=== PATIENT | female | born 1980 ===

== ENCOUNTER 2022-06-28 11:15 | Outpatient (CLI) | payer OTHER | END 2022-06-28 13:15 | disposition home or self-care (01) | LOC: PRENATAL 11:15 | PROVIDERS: ATTEND Obstetrics & Gynecology Maternal & Fetal Medicine | DX: Z96.1 Presence of intraocular lens (principal) ==

== ENCOUNTER 2022-07-20 09:18 | Outpatient (CLI) | payer OTHER | END 2022-07-20 10:30 | disposition home or self-care (01) | LOC: PRENATAL 09:18 | PROVIDERS: ATTEND Obstetrics & Gynecology Maternal & Fetal Medicine | DX: O35.0XX0 Maternal care for (suspected) central nervous system malformation in fetus, not applicable or unspecified (principal); O35.3XX0 Maternal care for (suspected) damage to fetus from viral disease in mother, not applicable or unspecified; O09.529 Supervision of elderly multigravida, unspecified trimester; Z3A.30 30 weeks gestation of pregnancy ==